=== PATIENT | female | born 1960 | race Caucasian/White ===

== ENCOUNTER 2022-06-18 18:32 | Emergency (ER) | payer BC ==
--- NOTE | 2022-06-18 18:48 | ED Physician Documentation ---
History of Present Illness - Stated complaint Stated Complaint: IRREGULAR HB - Chief complaint Chief Complaint: Cardiac - Additonal information Additional information: 62-year-old female comes to the emergency department for evaluation of a racing heart. She is visiting [facility] from [place]. She does have a history of recurrent SVT. Currently being followed by wire drawing machine operator hoping to get EP study and ablation. Currently taking no medications. Symptoms began about 45 minutes to an hour prior to arrival States that she recently developed a mild viral upper respiratory infection. Today she was climbing some stairs when she developed a racing heart. She has been unable to get her heart rate to slow despite her usual at home maneuvers such as the Valsalva. Thus she presents to the ER. She does describe her self as adenosine resistant She is denying chest pain or shortness of air. No nausea or vomiting. mild dyspnea Review of Systems Constitutional: reports: Reviewed and negative Cardiac: reports: Palpitations. denies: Chest pain / pressure, Pedal edema, Calf pain Respiratory: reports: Dyspnea GI: reports: Reviewed and negative : reports: Reviewed and negative Skin: reports: Reviewed and negative PD PAST MEDICAL HISTORY - Present Medications Home Medications: Ambulatory Orders Medication Instructions Recorded Confirmed No Known Home Medications 06/18/22 06/18/22 - Allergies Allergies/Adverse Reactions: Allergies Allergy/AdvReac Type Severity Reaction Status Date / Time No Known Drug Allergies Allergy Verified 06/18/22 18:35 PD ED PE NORMAL - General General: Alert and oriented X 3, No acute distress, Well developed/nourished - HEENT HEENT: Atraumatic, Moist mucous membranes - Neck Neck: Supple, no meningeal sign, No adenopathy - Cardiac Cardiac: No murmur, Strong equal pulses. No: RRR (SVT on monitor) - Respiratory Respiratory: No respiratory distress, Clear bilaterally - Abdomen Abdomen: Normal bowel sounds, Soft, Non tender - Back Back: No CVA TTP, No spinal TTP - Derm Derm: Normal color, Warm and dry, No rash - Extremities Extremities: No deformity, No tenderness to palpate, Normal ROM s pain - Neuro Neuro: Alert and oriented X 3, adult psychiatrist 2-12 intact Eye Opening: Spontaneous Motor: Obeys Commands Verbal: Oriented GCS Score: 15 Results - Vitals Vitals: Vital Signs - 24 hr 06/18/22 06/18/22 06/18/22 18:35 18:58 19:35 Temperature 36.2 C L Heart Rate 202 H 110 H 123 H Respiratory 20 14 21 Rate Blood Pressure 130/44 L 143/96 H 156/83 H O2 Saturation 99 98 97 Oxygen O2 Source Room air - EKG (time done) 1840 Rate: Rate (enter#) (194) Rhythm: SVT [place]: LAD Ischemia: Other (repo abnormality ) 1901 Rate: Rate (enter#) (115) Rhythm: Sinus tachycardia [place]: Normal Intervals: Normal AL. No: Prolonged QT QRS: Low voltage Compare to prior EKG: Changed from prior EKG Computer interpretation: Agree with computer (Now sinus tach following adenosine for SVT) - Labs Labs: Laboratory Tests 06/18/22 06/18/22 06/18/22 18:47 18:47 18:47 WBC 8.6 RBC 4.51 Hgb 13.8 Hct 41.1 MCV 91.1 MCH 30.6 MCHC 33.6 RDW 11.9 L Plt Count 140 MPV 11.2 H Neut # (Auto) 5.5 Lymph # (Auto) 1.7 [place] # (Auto) 1.1 H Eos # (Auto) 0.0 Baso # (Auto) 0.0 Absolute Nucleated RBC 0.00 Nucleated RBC % 0.0 Sodium 136 Potassium 3.4 L Chloride 102 Carbon Dioxide 23 Anion Gap 11.0 BUN 14 Creatinine 0.8 Estimated GFR (MDRD) 72 L Glucose 237 H Calcium 9.2 Total Bilirubin 0.7 AST 284 H ALT 288 H Alkaline Phosphatase 130 H Total Protein 7.4 Albumin 4.4 Globulin 3.0 Albumin/Globulin Ratio 1.5 Lipase 41 TSH 1.54 - Rads (name of study) cxr Radiology: Final report received (No acute cardiopulmonary pathology) PD MEDICAL DECISION MAKING - ED course Complexity details: reviewed results, re-evaluated patient, considered differential, d/w patient ED course: 62-year-old female comes the emergency department for evaluation of racing heart. Has a history of recurrent SVT. Currently being followed by wire drawing machine operator in [place] and is hoping to have an EP study for future ablation. This is at least her sixth ER visit in her lifetime for SVT. On presentation she was normotensive but had a heart rate of 194-200. She reported the sensation of an elephant sitting on her chest. Initial IV line was obtained and she was quickly administered 6 mg of adenosine at 1853. Following this she had a return of her heart rate to sinus rhythm with a rate of about 115. She feels markedly improved. We will continue to monitor. About 1 hour after arrival the patient has remained in sinus rhythm though mild sinus tachycardia with a heart rate at rest of about 115. She has ambulated well without any dyspnea or dizziness. I discussed with the patient the mild tachycardia that persist. I did offer her a short course of Metroprolol though she declined that at this time. She is eager to return home and return to [place] to get further evaluation completed with her wire drawing machine operator. Labs today do show some significant transaminase. She has no abdominal pain nausea or vomiting. I have advised her close follow-up with her primary care doctor regarding this. She may benefit from repeat LFTs in about 1 week's time or consideration of imaging. Given lack of abdominal pain nausea or vomiting we deferred imaging today - Critical Care Time(min): 15 Time Includes: Direct patient care, Coordinate care, See progress note (About 15 minutes of critical care time were dedicated to the patient on presentation to the ER for SVT) Data interpretation: Prior EKG Departure - Departure Disposition: Home, Self Care Clinical Impression: SVT (supraventricular tachycardia), Tachycardia, Abnormal liver function tests Condition: Stable Record reviewed to determine appropriate education?: Yes Comments: Millie you are seen today in the emergency department because you again developed SVT. We gave you a one-time dose of 6 mg of adenosine which is dropped your heart rate to about 110. It is important that you discuss this ED visit with your wire drawing machine operator. Given that your SVT seems to be recurrent you may benefit from referral to a specialized wire drawing machine operator who does electrophysiology and/or ablation. While here in the emergency department your CBC was normal but we did note some abnormal liver function tests. Because you do not have any abdominal pain or vomiting we deferred doing any imaging today in the ER. However I would recommend very close follow-up with your primary care doctor. Your liver function test should be repeated within the week. They may also want to consider doing an abdominal ultrasound. If at any point you find that your symptoms worsen, you develop abdominal pain, nausea vomiting or have a return of SVT please return to the emergency department.
[2022-06-18] MEDS: ADENOSINE 6 MG/2 ML VIAL IVP STA (18:51)
[2022-06-18 18:59] LABS: BASOPHILS % (AUTO) 0.2 %; EOSINOPHILS % (AUTO) 0.2 %; HCT - HEMATOCRIT 41.1 % (37.0-47.0); HGB - HEMOGLOBIN 13.8 g/dL (12.0-16.0); LYMPHOCYTES # (AUTO) 1.7 10^3/uL (1.5-3.5); LYMPHOCYTES % (AUTO) 19.7 %; MEAN CORPUSCULAR HEMOGLOBIN 30.6 pg (27.0-31.0); MEAN CORPUSCULAR HGB CONC 33.6 g/dL (32.0-36.0); MEAN CORPUSCULAR VOLUME 91.1 fL (81.0-99.0); MEAN PLATELET VOLUME 11.2 fL (7.9-10.8); MONOCYTES # (AUTO) 1.1 10^3/uL (0.0-1.0); MONOCYTES % (AUTO) 12.9 %; NEUTROPHILS # (AUTO) 5.5 10^3/uL (1.5-6.6); NEUTROPHILS % (AUTO) 64.3 %; PLT - PLATELET COUNT 140 10^3/uL (130-450); RED BLOOD COUNT 4.51 10^6/uL (4.20-5.40); RED CELL DISTRIBUTION WIDTH 11.9 % (12.0-15.0); WHITE BLOOD COUNT 8.6 x10^3/uL (4.8-10.8)
[2022-06-18 19:14] LABS: ALBUMIN 4.4 g/dL (3.2-5.5); ALBUMIN/GLOBULIN RATIO 1.5 (1.0-2.2); BILIRUBIN,TOTAL 0.7 mg/dL (0.2-1.0); CALCIUM 9.2 mg/dL (8.5-10.3); CREATININE 0.8 mg/dL (0.4-1.0); POTASSIUM 3.4 mmol/L (3.5-5.0); TOTAL PROTEIN 7.4 g/dL (6.7-8.2)
--- NOTE | 2022-06-18 19:41 | XRAY Report ---
PROCEDURE: Chest 1 View X-Ray INDICATIONS: Chest Pain TECHNIQUE: One view of the chest was acquired. COMPARISON: None FINDINGS: Surgical changes and devices: None. Lungs and pleura: No pleural effusions or pneumothorax. Lungs are clear. Mediastinum: Mediastinal contours appear normal. Heart size is normal. Bones and chest wall: No suspicious bony lesions. Overlying soft tissues appear unremarkable. IMPRESSION: No acute cardiopulmonary pathology. Reviewed by: Clinton Sanchez MD on 06/18/2022 7:40 PM PDT Approved by: Clinton Sanchez MD on 06/18/2022 7:40 PM PDT Station ID: [id number]
[2022-06-18] MEDS: SODIUM CHLORIDE 0.9% 1,000 ML IV STA (20:04)
[2022-06-18 20:22] VITALS: BP 145/75
== END 2022-06-18 20:28 | disposition home or self-care (01) ==
LOC: ED 18:32
DX: I47.1 Supraventricular tachycardia (principal); R94.5 Abnormal results of liver function studies
CPT/HCPCS: 36415; 71045; 80053; 83690; 84443; 85025; 93005; 96374; 99283; 99284; J0153